=== PATIENT | female | born 1955 | race African-American/Black ===

== ENCOUNTER 2017-11-06 05:17 | Emergency (ER) | payer OTHER | END 2017-11-06 07:31 | disposition home or self-care (01) | LOC: FTE 05:17 | DX: J06.9 Acute upper respiratory infection, unspecified (principal); I10 Essential (primary) hypertension; J45.909 Unspecified asthma, uncomplicated; Z76.0 Encounter for issue of repeat prescription | CPT/HCPCS: 71010; 99283-25 ==